=== PATIENT | female | born 1950 | race Caucasian/White ===

== ENCOUNTER → 2018-06-21 | Day surgery (SDC) | payer MEDICARE, OTHER ==
[2018-06-21 09:34] VITALS: RESP 16; BMI 43.0
[2018-06-21 11:55] VITALS: BP 150/69; PULSE 80; TEMP 98.6
--- NOTE | 2018-06-21 19:48 | MM ---
EXAMINATION TYPE: MG stereo VAD BX RT DATE OF EXAM: 06/21/2018 COMPARISON: 06/13/2018, 06/08/2018, 01/05/2017, 06/19/2015 CLINICAL HISTORY: 68-year-old female referred for stereotactic core needle biopsy of posterior upper outer quadrant right breast microcalcifications TECHNIQUE: Stereotactic guided core biopsy of the right breast. FINDINGS: The procedure of stereotactic guided core biopsy was explained to the patient. Benefits, alternatives, and risks were discussed. An informed consent was then obtained. The shortness pathway for biopsy was chosen. Shortness pathway was a lateral approach. I performed the localization, followed by the procedure. A vacuum assisted biopsy gun was used to obtain multiple core samples. There was initial difficulty in identifying the calcifications due to large size of the breast. Orthogonal plane was attempted and finally the calcifications were brought into the target window in the lateral view. The patient tolerated the procedure well without any immediate complication. The patient was kept in the radiology department for short stay after the procedure and then discharged home in stable condition. Targeted calcifications are identified in specimen mammogram. However, post biopsy mammogram shows the clip to lie in the region of more peripherally located microcalcifications. Specimen mammogram suggested a similar morphology to the intended target. A small air cavity is located at the intended target so suspect that a small amount of the intended calcifications were sampled as well during the compression. IMPRESSION: 1. Note technically challenging procedure with difficulty in securing the microcalcifications in the target window. 2. Inadvertent biopsy of more peripherally located upper outer quadrant right breast microcalcifications. However, as the overall morphology of the biopsied calcifications on specimen mammogram resembles that of the intended target and there is a small air cavity at the intended target site as well suggesting that a small amount of these calcifications were sampled during breast compression, in the event of benign results, six-month follow-up will be recommended. Note that the intended target microcalcifications were present on prior studies but show slight increase posteriorly. PATHOLOGY RESULTS TO FOLLOW. Pathology Results: Benign RIGHT BREAST, STEREOTACTIC CORE BIOPSY: Fibrocystic changes including fibroadenomatoid hyperplasia with calcifications. Recommendation Follow up mammogram of the right breast in 6 months. LENY
== END | disposition home or self-care (01) ==
LOC: RADMAMWWP 09:09
PROVIDERS: ATTEND Family Medicine
DX: N60.11 Diffuse cystic mastopathy of right breast (principal); N62 Hypertrophy of breast; R92.1 Mammographic calcification found on diagnostic imaging of breast
CPT/HCPCS: 88305; 19081; A4648; J2001

== ENCOUNTER → 2018-09-20 | Outpatient (CLI) | payer MEDICARE, OTHER ==
[2018-09-20 13:28] VITALS: BP 85/59; PULSE 90; RESP 18; TEMP 98.1; BMI 44.5
--- NOTE | 2018-09-20 13:59 | P.GSHP ---
History of Present Illness H&P Date: 09/20/18 Chief Complaint: mammographic abnormality Ronna is a 68-year-old white female [place] [id number]. This was a bilateral mammogram and there were noted to be increasing calcifications in the upper outer quadrant of the right breast. Nothing of concern was documented in the left breast. It is recommended that the patient undergo a right breast stereotactic core biopsy. This was performed on [id number]. The patients pathology revealed fibrocystic changes including fiber adenomatoid hyperplasia with calcifications. The patient has no complaints related to the biopsy. The patient does not feel any masses or nodules in either breast. The patient has no history of any trauma to the pressor infection in the breast. Patient had a open right breast biopsy many years ago which was benign. Family History: sister: ovarian mother: pancreatic cancer at 92 Hormonal history: Menarche:13 , breast fed:1, first born at 25 menopause: 57 BCP: 3 years hormones: none Past surgical history: 1.tonsil 2. bilateral knee replacement 3. D&C 4. tubal ligation Medical history: 1. Type 2 diabetes 2. Hypertension 3. High cholesterol 4. High pressure in her eyes not glaucoma Social history: Smoke: Negative Alcohol: Negative Drugs: Negative - Constitutional Constitutional: Denies chills, Denies fever - EENT Comment: high pressure in her eyes, CVA right eye Eyes: right decreased vision Ears: deny: decreased hearing, tinnitus Ears, nose, mouth and throat: Denies headache, Denies sore throat - Breasts Breasts: bilateral: as per HPI - Cardiovascular Comment: High cholesterol Cardiovascular: Reports high blood pressure - Respiratory Comment: Pneumonia and bronchitis in the past Respiratory: Denies cough, Denies 7 - Gastrointestinal Gastrointestinal: Denies abdominal pain, Denies diarrhea, Denies nausea, Denies vomiting - Genitourinary (Female) Genitourinary: Denies dysuria, Denies hematuria - Menstruation Menstruation: Reports postmenopausal - Musculoskeletal Comment: arthrtis Musculoskeletal: Reports myalgias - Integumentary Comment: right wrist biopsy done itches - 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 bilateral knee replacement-2012. Past Anesthesia/Blood Transfusion Reactions: No Reported Reaction Past Psychological History: No Psychological Hx Reported Smoking Status: Never smoker Past Alcohol Use History: Occasional Past Drug Use History: None Reported Medications and Allergies Home Medications Medication Instructions Recorded Confirmed Type Aspirin 1 tab PO DAILY 06/15/18 09/20/18 History Calcium Carbonate/Vitamin D3 2 tab PO DAILY 06/15/18 09/20/18 History [Calcium 600-Vit D3 2,500 Sftgl] D3/Folic Acid/Collagen,Hydroly 1 each PO DAILY 06/15/18 09/20/18 History [Cyfolex Capsule] Magnesium 200 mg PO DAILY 06/15/18 09/20/18 History [place]-3 Acid Ethyl Esters [Lovaza] 4 gm PO DAILY 06/15/18 09/20/18 History Vits A,C,E/Lutein/Minerals [Vision 1 each PO DAILY 06/15/18 09/20/18 History Formula with Lutein Tab] amLODIPine [Norvasc] 10 mg PO DAILY 06/15/18 09/20/18 History glipiZIDE [Glucotrol] 10 mg PO AC-BRKFST 06/15/18 09/20/18 History metFORMIN HCL [Glucophage] 1,000 mg PO BID 06/15/18 09/20/18 History Allergies Allergy/AdvReac Type Severity Reaction Status Date / Time No Known Allergies Allergy Verified 09/20/18 13:34 Surgical - Exam Vital Signs Temp Pulse Resp BP Pulse Ox 98.1 F 90 18 85/59 98 09/20/18 13:24 09/20/18 13:24 09/20/18 13:24 09/20/18 13:24 09/20/18 13:24 BMI 44.5 - General obese - Eyes normal ocular movement - ENT histurism no hearing loss, no congestion - Neck no masses, trachea midline - Respiratory normal respiratory effort, clear to auscultation - Cardiovascular Rhythm: regular Heart Sounds: normal: S1, S2 - Abdomen Abdomen: soft, non tender, no guarding, no rigid, no rebound - Integumentary normal turgor - Neurologic no disoriented, no combative - Musculoskeletal normal gait, normal posture - Psychiatric oriented to time, oriented to person, oriented to place, speech is normal, memory intact breast exam: BRA 42DD The patient does complain of some shoulder pain bilaterally related to the large size of her breast Right breast: Multi-positional exam fibrocystic changes no dominant masses or nodules of concern, the patient does have a pockmark in the upper outer quadrant area of the breast where she packed a area of the pump this is healing now fungal infection under both breast Right axilla: No adenopathy of concern Left breast: Multi-positional exam fibrocystic changes no dominant mass or nodules of concern Left axilla: No adenopathy of concern Results Mammogram and pathology results reviewed Assessment and Plan Assessment: Impression: 1. Radiographic abnormality right breast 2. Fibrocystic breast changes 3. Family history of cancer 4. Hypertension 5. Diabetes 6. High cholesterol 7.obesity 8. hirsturism Plan: 1. Testosterone levels 2nd to hirstusm, will include estrogen and progesterone levels 2. Repeat right breast mammogram 6 months from her biopsy with repeat exam at that time, 3. Patient does not have any evidence of cancer at this time 4. nystatin under breast Loren Model: 2.5% risk of breast cancer after 5 years 8.8% lifetime risk of breast cancer CC: Maida Duncan N.P., Dr. Diaz
== END | disposition home or self-care (01) ==
LOC: WWCWWP 12:48
PROVIDERS: ATTEND Surgery
DX: L68.0 Hirsutism (principal)
CPT/HCPCS: 82672; 84144; 84402; 84403